=== PATIENT | female | born 1970 | race Caucasian/White ===

== ENCOUNTER 2017-05-21 22:18 | Emergency (ER) | payer OTHER ==
[~2017-05-21] VITALS: Ht 157.5 cm; Wt 115.3 kg
[2017-05-21 22:21] VITALS: BP 162/88; PULSE 118; RESP 20; TEMP 99.3; O2SAT 97
[2017-05-21] MEDS ORDERED: SODIUM CHLOR 0.9% 1000 ML INJ 1,000 ML IV SCH (22:36)
[2017-05-21] MEDS ORDERED: SODIUM CHLORIDE 0.9% FLUSH 10 ML FLUSH IV FLUSH PRN (22:45)
[2017-05-21] MEDS ORDERED: MORPHINE SULFATE 4 MG/ML INJ IV PUSH ONE (22:45)
[2017-05-21] MEDS ORDERED: ONDANSETRON HCL 4 MG/2 ML VIAL IVP ONE (22:45)
--- NOTE | 2017-05-21 22:54 | PD ---
HPI Chief Complaint: GI Complaint Time Seen by Provider: 22:36 Travel History International Travel<30 days: No Contact w/Intl Traveler<30days: No Traveled to known affect area: No History of Present Illness HPI Social 47-year-old woman presents to the emergency department complaining of nausea vomiting diarrhea and feeling poorly for the past several days. She's been sick for about a week or so with his nausea vomiting. She also having kind of bandlike epigastric abdominal pain and periumbilical abdominal pain. She's had copious watery stools about 10 times in the past 24 hours. She also had nausea and vomiting especially when eating foods. She is a history of a gastric bypass in 2004. This is complicated by dumping syndrome and diarrhea symptoms that she takes Lomotil for occasionally. Unclear she's had fevers or not but she has had some subjective chills. She is a history of diabetes hypothyroidism and hyperlipidemia. She takes metformin for diabetes. No other complaints. History Past Medical History Narrative Medical Diabetes Hypothyroidism Hyperlipidemia Tetanus Vaccination: > 5 Years Influenza Vaccination: Yes : 2 Para: 2 Social History Alcohol Use: No Tobacco Use: No Allergies-Medications (Allergen,Severity, Reaction): Coded Allergies: codeine (Verified Allergy, Severe, Anaphylaxis, 05/21/17) Penicillins (Verified Allergy, Unknown, Fever, 05/21/17) Reported Meds & Prescriptions Reported Meds & Active Scripts Active Reported Tylenol Extra Strength (Acetaminophen) 500 Mg Tablet 1,000 Mg PO TID Aspirin 81 Low Dose (Aspirin) 81 Mg Chew 81 Mg CHEW DAILY Zyrtec (Cetirizine HCl) 10 Mg Tablet 1 Tab PO DAILY Diphenhydramine (Diphenhydramine HCl) 25 Mg Tab 25 Mg PO Q6H PRN Lomotil (Diphenoxylate-Atropine) 2.5-0.025 Mg Tab 2 Tab PO Q6H PRN Calcium 600 with Vitamin D (Calcium Carbonate-Cholecalciferol) 600-400 mg-Unit Tab 2 Tab PO BID [Fish Oil] 1 Cap PO BID Womens One Daily (Multiple Vitamins W/ Minerals) 27 Mg-0.4 Mg Tab 1,000 Mg PO DAILY Maxalt (Rizatriptan Benzoate) 10 Mg Tab 1 Tab PO BID PRN Topamax (Topiramate) 100 Mg Tab 100 Mg PO BID Metformin (Metformin HCl) 1,000 Mg Tab 1,000 Mg PO DAILY With a meal Metformin (Metformin HCl) 500 Mg Tab 500 Mg PO DAILY With a meal Symbicort Inh (Budesonide/Formoterol Fumarate) 80-4.5 Mcg/Act Aero 1 Puff INH Q12HR PRN Ventolin Hfa 18 GM Inh (Albuterol Sulfate) 90 Mcg/Act Aer 2 Puff INH Q4-6H PRN Crestor (Rosuvastatin Calcium) 5 Mg Tab 5 Mg PO DAILY Levothyroxine (Levothyroxine Sodium) 100 Mcg Tab 100 Mcg PO DAILY Protonix (Pantoprazole Sodium) 20 Mg Tab 20 Mg PO BID Carafate (Sucralfate) 1 Gram Tab 1 Gm PO QID On empty stomach Review of Systems Except as stated in HPI: all other systems reviewed are Neg Physical Exam Narrative GENERAL: 47 year-old woman, obese, no acute distress. SKIN: Focused skin assessment warm/dry. HEAD: Atraumatic. Normocephalic. CARDIOVASCULAR: Regular rate and rhythm. No murmur appreciated. RESPIRATORY: No accessory muscle use. Clear to auscultation. Breath sounds equal bilaterally. GASTROINTESTINAL: Abdomen is obese and soft. Is no tenderness. No rebound or guarding. MUSCULOSKELETAL: No obvious deformities. No clubbing. No cyanosis. No edema. NEUROLOGICAL: Awake and alert. No obvious cranial nerve deficits. Motor grossly within normal limits. Normal speech. PSYCHIATRIC: Appropriate mood and affect; insight and judgment normal. Data Data Last Documented VS Vital Signs Date Time Temp Pulse Resp B/P (MAP) Pulse Ox O2 Delivery O2 Flow Rate FiO2 05/21/17 23:16 94 98 Room Air 05/21/17 22:21 99.3 20 162/88 (112) Orders Orders Complete Blood Count With Diff (05/21/17 22:36) Comprehensive Metabolic Panel (05/21/17 22:36) Lipase (05/21/17 22:36) Urinalysis - C+S If Indicated (05/21/17 22:36) Iv Access Insert/Monitor (05/21/17 22:36) Ecg Monitoring (05/21/17 22:36) Oximetry (05/21/17 22:36) Morphine Inj (Morphine Inj) (05/21/17 22:45) Ondansetron Inj (Zofran Inj) (05/21/17 22:45) Sodium Chlor 0.9% 1000 Ml Inj (Ns 1000 M (05/21/17 22:36) Sodium Chloride 0.9% Flush (Ns Flush) (05/21/17 22:45) Urine Culture (05/21/17 22:45) Labs Laboratory Tests Test 05/21/17 22:45 White Blood Count 10.2 TH/MM3 Red Blood Count 5.11 MIL/MM3 Hemoglobin 15.6 GM/DL Hematocrit 46.4 % Mean Corpuscular Volume 90.9 FL Mean Corpuscular Hemoglobin 30.6 PG Mean Corpuscular Hemoglobin Concent 33.7 % Red Cell Distribution Width 11.2 % Platelet Count 258 TH/MM3 Mean Platelet Volume 8.9 FL Neutrophils (%) (Auto) 58.3 % Lymphocytes (%) (Auto) 33.3 % Monocytes (%) (Auto) 6.2 % Eosinophils (%) (Auto) 1.4 % Basophils (%) (Auto) 0.8 % Neutrophils # (Auto) 6.0 TH/MM3 Lymphocytes # (Auto) 3.4 TH/MM3 Monocytes # (Auto) 0.6 TH/MM3 Eosinophils # (Auto) 0.1 TH/MM3 Basophils # (Auto) 0.1 TH/MM3 CBC Comment DIFF FINAL Differential Comment Urine Color STRAW Urine Turbidity CLEAR Urine pH 5.5 Urine Specific [place] 1.012 Urine Protein NEG mg/dL Urine Glucose (UA) NEG mg/dL Urine Ketones NEG mg/dL Urine Occult Blood TRACE Urine Nitrite NEG Urine Bilirubin NEG Urine Leukocyte Esterase TRACE Urine RBC 0-2 /hpf Urine WBC 3-5 /hpf Urine Squamous Epithelial Cells 6-8 /hpf Urine Bacteria MOD /hpf Microscopic Urinalysis Comment CULTURE INDICATED Blood Urea Nitrogen 13 MG/DL Creatinine 0.77 MG/DL Random Glucose 130 MG/DL Total Protein 7.7 GM/DL Albumin 3.7 GM/DL Calcium Level 8.3 MG/DL Alkaline Phosphatase 95 U/L Aspartate Amino Transf (AST/SGOT) 16 U/L Alanine Aminotransferase (ALT/SGPT) 34 U/L Total Bilirubin 0.3 MG/DL Sodium Level 136 MEQ/L Potassium Level 3.8 MEQ/L Chloride Level 103 MEQ/L Carbon Dioxide Level 23.0 MEQ/L Anion Gap 10 MEQ/L Estimat Glomerular Filtration Rate 80 ML/MIN Lipase 200 U/L [facility] Medical Decision Making Medical Screen Exam Complete: Yes Emergency Medical Condition: Yes Interpretation(s) LABS: CBC is unremarkable. CMP is unremarkable. Glucose 1:30. Lipase is normal. UA with convincing evidence of infection. Moderate bacteria, culture pending. Differential Diagnosis Gastroenteritis, gastritis, gastric outlet obstruction, infection, enteritis, malabsorption syndrome, other Narrative Course Medical decision making INITIAL: Is a 47-year-old woman with a history gastric bypass who presents with nausea vomiting copious watery diarrhea suggestive of gastroenteritis. She looks well. Symptoms ongoing for several days now. She'll history of diarrhea symptoms associated with dumping syndrome and her previous gastric bypass. She looks overall well. Concern for gastric bypass complications. Suspect more benign etiology. We'll check labs, symptomatic treatment, patient's had many CTs in her lifetime, we will try to limit further exposure to diagnostic ionizing radiation. Reassess. Diagnosis Primary Impression: Nausea vomiting and diarrhea Additional Instructions: Take Zofran as needed for nausea or vomiting. Take Lomotil as needed for diarrhea. Drink plenty of fluids stay well-hydrated. Return to the emergency department for any worsening abdominal pain, vomiting, dehydration, or any other new or worsening symptoms. Follow-up with her primary doctor in the next one to 2 weeks if you're not feeling completely well. Med/Other Pt SpecificInfo: Prescription(s) given Scripts Ondansetron Odt (Zofran Odt) 4 Mg Tab 4 MG SL Q8HR Y for Nausea/Vomiting, #12 TAB 0 Refills Prov: Kevin Nuñez MD 05/21/17 Diphenoxylate-Atropine (Lomotil) 2.5-0.025 Mg Tab 2 TAB PO Q6H Y for DIARRHEA, #12 TAB 0 Refills Prov: Kevin Nuñez MD 05/21/17 Disposition: 01 DISCHARGE HOME Condition: Stable Kevin Nuñez MD May 21, 2017 22:54
[2017-05-21 22:56] LABS: BASOPHIL # 0.1 TH/MM3 (0-0.2); BASOPHIL % 0.8 % (0.0-2.0); EOSINOPHIL # 0.1 TH/MM3 (0-0.4); EOSINOPHIL % 1.4 % (0.0-4.0); HEMATOCRIT 46.4 % (35.0-46.0); HEMO FLAGS DIFF FINAL; LYMPH % 33.3 % (9.0-44.0); LYMPHOCYTE # 3.4 TH/MM3 (1.0-4.8); MEAN CELL VOLUME 90.9 FL (80.0-100.0); MEAN CORPUSCULAR HEMOGLOBIN 30.6 PG (27.0-34.0); MEAN CORPUSCULAR HGB CONC 33.7 % (32.0-36.0); MONO % 6.2 % (0.0-8.0); NEUT % 58.3 % (16.0-70.0); PLATELET COUNT 258 TH/MM3 (150-450); RED BLOOD COUNT 5.11 MIL/MM3 (4.00-5.30); RED CELL DISTRIBUTION WIDTH 11.2 % (11.6-17.2); WHITE BLOOD COUNT 10.2 TH/MM3 (4.0-11.0)
[2017-05-21 22:59] LABS: BLOOD, URINE TRACE (NEG); GLUCOSE,URINE NEG (NEG); KETONE, URINE NEG (NEG); NITRITE,URINE NEG (NEG); PH, URINE 5.5 (5.0-8.5)
[2017-05-21 23:01] LABS: URINE COLOR STRAW (YELLW/STRAW)
[2017-05-21 23:03] LABS: RBC, URINE 0-2 /hpf (0-3)
[2017-05-21 23:04] LABS: BACTERIA, URINE MOD /hpf; CHLORIDE 103 MEQ/L (98-107); COMMENT (UR) CULTURE INDICATED; CULTURE IF INDICATED CULTURE INDICATED; POTASSIUM 3.8 MEQ/L (3.5-5.1); SODIUM (NA) 136 MEQ/L (136-145)
[2017-05-21 23:08] LABS: ANION GAP 10 MEQ/L (5-15)
[2017-05-21 23:09] LABS: BLOOD UREA NITROGEN 13 MG/DL (7-18)
[2017-05-21] MEDS ORDERED: PANT20 PO (23:10)
[2017-05-21] MEDS ORDERED: METF500T PO (23:10)
[2017-05-21] MEDS ORDERED: LOMO2.5T PO ×2 (23:10→23:32)
[2017-05-21] MEDS ORDERED: CALC1TAB87 PO (23:10)
[2017-05-21] MEDS ORDERED: MAXA10TA2 PO (23:10)
[2017-05-21] MEDS ORDERED: FISHOIL PO (23:10)
[2017-05-21] MEDS ORDERED: METF1000 PO (23:10)
[2017-05-21] MEDS ORDERED: ACET-822 PO (23:10)
[2017-05-21] MEDS ORDERED: LEVO100T5 PO (23:10)
[2017-05-21] MEDS ORDERED: WOMETAB5 PO (23:10)
[2017-05-21] MEDS ORDERED: TOPA100T11 PO (23:10)
[2017-05-21] MEDS ORDERED: CARA1TAB6 PO (23:10)
[2017-05-21] MEDS ORDERED: SYMB80AE INH (23:10)
[2017-05-21] MEDS ORDERED: DIPH25TA2 PO (23:10)
[2017-05-21] MEDS ORDERED: CETI-1 PO (23:10)
[2017-05-21] MEDS ORDERED: ROSU5 PO (23:10)
[2017-05-21] MEDS ORDERED: VENTAER INH (23:10)
[2017-05-21] MEDS ORDERED: ASPI81CH3 CHEW (23:10)
[2017-05-21 23:11] LABS: ALT (GPT) 34 U/L (10-53); AST (GOT) 16 U/L (15-37); GLOMERULAR FILTRATION RATE 80 ML/MIN (>89)
[2017-05-21 23:13] LABS: TOTAL BILIRUBIN ADULT 0.3 MG/DL (0.2-1.0)
[2017-05-21 23:14] LABS: ALKALINE PHOSPHATASE 95 U/L (45-117)
[2017-05-21 23:16] VITALS: PULSE 94; O2SAT 98
[2017-05-21] MEDS ORDERED: ZOFR4TAB3 SL (23:32)
== END 2017-05-21 23:53 | disposition home or self-care (01) ==
LOC: PHED 22:18
DX: R11.2 Nausea with vomiting, unspecified (principal); R19.7 Diarrhea, unspecified; E11.9 Type 2 diabetes mellitus without complications; E03.9 Hypothyroidism, unspecified; E78.5 Hyperlipidemia, unspecified
CPT/HCPCS: 80053; 81001; 83690; 85025; 87086; 96361; 96374; 96375; 99284; J2270; J2405; J7030